=== PATIENT | female | born 1990 | race Caucasian/White ===

== ENCOUNTER 2022-02-01 22:47 | Emergency (ER) | payer OTHER ==
[~2022-02-01] VITALS: Ht 170.2 cm; Wt 76.2 kg
[2022-02-01 23:31] LABS: *BILIRUBIN,URIN NEGATIVE (NEGATIVE); *BLOOD, URINE NEGATIVE (NEGATIVE); *CLARITY,URINE CLEAR (CLEAR); *COLOR,URINE YELLOW (YELLOW); *KETONES,URINE NEGATIVE (NEGATIVE); *UROBILINOGEN,URINE 0.2 E.U./dl (NORMAL); LEUKOCYTE ESTERASE ,URINE NEGATIVE (NEGATIVE); NITRITE, URINE NEGATIVE (NEGATIVE); UGLUCOSE NEGATIVE (NEGATIVE)
[2022-02-01 23:36] LABS: *URINE HCG, QUAL NEG (NEGATIVE)
[2022-02-01] MEDS ORDERED: DOXYCYCLINE HYCLATE 100 MG TABLET PO ONE (23:45)
[2022-02-01] MEDS ORDERED: PHEN-705 PO (23:46)
[2022-02-01] MEDS ORDERED: DOXY-326 PO (23:46)
[2022-02-01] MEDS ORDERED: DOXYCYCLINE HYCLATE 100 MG TABLET ONE (23:50)
[2022-02-01] MEDS ORDERED: PHENAZOPYRIDINE HCL 100 MG TABLET ONE (23:50)
[2022-02-01 23:54] VITALS: BP 135/88
--- NOTE | 2022-02-01 23:54 | NUR ---
Patient discharged to home in stable condition. Written and verbal after care instructions given. Patient verbalizes understanding of instructions. Stressed follow up or return to ER for worsening s/s.
[2022-02-02] MEDS ORDERED: PHENAZOPYRIDINE HCL 100 MG TABLET PO ONE
[2022-02-04 02:06] LABS: *GC NAA Negative (Negative)
[2022-02-04 07:07] LABS: *TRIC.VAG. NAA Negative (Negative)
== END 2022-02-01 23:55 | disposition home or self-care (01) ==
LOC: ER 23:00
DX: R30.0 Dysuria (principal); F17.210 Nicotine dependence, cigarettes, uncomplicated; Z11.3 Encounter for screening for infections with a predominantly sexual mode of transmission
CPT/HCPCS: 84703; 87077; 87086; 87210; 87491; A4663